=== PATIENT | male | born 1945 ===

== ENCOUNTER 2017-07-17 08:05 | Day surgery (SDC) | payer MEDICARE ==
[2017-07-10 12:26] VITALS: BMI 20.5
[~2017-07-17 08:05] MED LIST: Mineral Oil Light Sterile 25 ml ONE
[2017-07-17] MEDS ORDERED: Propofol 10 mg/ml Inj (20 ML) ONE (10:17)
[2017-07-17] MEDS ORDERED: Succinylcholine 200 mg/10 ml Inj IV ONE (10:23)
--- NOTE | 2017-07-17 10:50 | CARD ---
APPROVED REPORT EKG Measurement Heart [id number] [id number] <Conclusion> Normal sinus rhythm Left ventricular hypertrophy with QRS widening Nonspecific T wave abnormality Prolonged QT Abnormal ECG
[2017-07-17] MEDS ORDERED: Rocuronium 10 mg/ml (5 ml) ONE (11:25)
[2017-07-17] MEDS ORDERED: Sodium Chloride 0.9% 1,000 ML IV SCH (11:45)
[2017-07-17] MEDS ORDERED: HYDROmorphone 0.5 mg/0.5 ml ISec IVP PRN (11:46)
[2017-07-17 12:37] VITALS: BP 130/58; PULSE 97; RESP 20; TEMP 97.2; O2SAT 95
[2017-07-17] MEDS ORDERED: HYDROmorphone 0.5 mg/0.5 ml ISec ONE (12:51)
--- NOTE | 2017-07-17 23:06 | OP ---
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 PROCEDURE PERFORMED: Direct microlaryngoscopy with biopsy. SURGEON: Hao De Souza DO [employer] OFFICER: Dr. Shabazz. TYPE OF ANESTHESIA: General endotracheal. IV FLUID INTAKE: Crystalloid. ESTIMATED BLOOD LOSS: 1 mL FINDINGS: Normal laryngeal examination on microlaryngoscopy. No masses seen to base of tongue. Biopsies taken of right false cord. CONDITION: Stable. PROCEDURE IN DETAIL: The patient is a 72-year-old male with history of base of tongue cancer. He was treated with a combination of chemoradiation. Posttreatment, he underwent a PET scan, which demonstrated increased uptake in the right true and false vocal cords with a SUVmax of 9. There was no demonstration of lesion on flexible laryngoscopy; however, due to the PET scan findings, decision was made to bring the patient to the operating room for further examination and biopsy. All risks and benefits including but not limited to bleeding, infection, changes in voice, both temporary and permanent were discussed with the patient, he understood these risks and signed informed consent. After informed consent was signed, the patient was brought to the operating room and placed in the operating room table in supine position. At this point, general anesthesia was induced and the patient was intubated. At this point, time-out was called confirming proper patient, proper procedure, currently the patient's allergies. At this point, the patient's alveolar ridge was protected with wet Ray-Monet and first palpation was undertaken of the soft and hard palate, tonsils, and base of tongue. No masses or lesions were felt. At this point, a Dedo laryngoscope was inserted into the mouth, again hard and soft palpate were visualized and noted to be normal in appearance. Base of the tongue and vallecula were visualized and noted to be normal in appearance. The lingual surface of the epiglottis was noted to be normal in appearance. At this point, the bilateral pyriform sinuses were evaluated and noted to be normal in appearance without mass or lesions. At this point, the patient was placed into suspension. The laryngeal surface of the epiglottis was noted to be normal in appearance. True and false cords were noted to be normal in appearance and false cords bilaterally were noted to be normal in appearance and soft to palpation. Further documentation was taken of all these subsites. At this point, a biopsy was taken of the right false cord with a cup forceps and sent for permanent pathological analysis and epinephrine-soaked pledgets was then placed over the biopsy site for hemostasis. Hemostasis was obtained and then the laryngoscope was removed from the mouth and care of the patient was turned back over to the Anesthesia Team. The patient tolerated the procedure well with no complications. Hao De Souza DO
--- NOTE | 2017-07-18 07:43 | CARD ---
APPROVED REPORT EKG Measurement Heart [id number] [place] 176P51 [id number] <Conclusion> Normal sinus rhythm Left ventricular hypertrophy with repolarization abnormality Cannot rule out Inferior infarct, age undetermined Prolonged QT Abnormal ECG
== END 2017-07-17 13:11 | disposition home or self-care (01) ==
LOC: SDS 08:05
PROVIDERS: ATTEND Otolaryngology Plastic Surgery within the Head & Neck
DX: C32.9 Malignant neoplasm of larynx, unspecified (principal); I10 Essential (primary) hypertension; Z87.891 Personal history of nicotine dependence
CPT/HCPCS: 31541; 88305; 93005; J0171; J0330; J1100; J1170; J2704; J3010; J7040

== ENCOUNTER 2017-07-17 13:17 | Inpatient (IN) | payer MEDICARE, OTHER ==
[2017-07-17 13:17] VITALS: BMI 20.5
[2017-07-17] MEDS ORDERED: Nitroglycerin 2% Ointment Foilpak UD TOP STA (13:58)
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
--- NOTE | 2017-07-17 15:12 | RAD ---
HISTORY: cp COMPARISON: 12/02/2014 FINDINGS: LUNGS: There is vascular and interstitial congestion. There is a right internal jugular Port-A-Cath PLEURA: No significant pleural effusion identified, no pneumothorax apparent. CARDIOVASCULAR: Normal. OSSEOUS STRUCTURES: No significant abnormalities. VISUALIZED UPPER ABDOMEN: Normal. OTHER FINDINGS: None. IMPRESSION: Vascular and interstitial congestion
[2017-07-17 15:37] LABS: EOS % 0.2 % (1.5-5.0); GRAN # 5.31 (1.4-6.5); GRAN % 86.6 % (50.0-68.0); HEMATOCRIT 36.6 % (42.0-52.0); LYMPH # 0.8 (1.2-3.4); LYMPH % 12.9 % (22.0-35.0); MEAN CELL VOLUME 89.1 fl (80.0-105.0); MEAN CORPUSCULAR HEMOGLOBIN 30.4 pg (25.0-35.0); MEAN CORPUSCULAR HGB CONC 34.2 g/dl (31.0-37.0); MEAN PLATELET VOLUME 9.1 fl (7.0-11.0); MONO % 0.3 % (1.0-6.0); RED CELL DISTRIBUTION WIDTH 14.3 % (11.5-14.5); WHITE BLOOD COUNT 6.1 10^3/ul (4.5-11.0)
[2017-07-17 15:40] LABS: ALB/GLOB RATIO 1.1 (1.1-1.8); ALKALINE PHOSPHATASE 76 U/L (38-126); ALT/SGPT 19 U/L (7-56); AST/SGOT 27 U/L (17-59); BILIRUBIN,TOTAL 0.5 mg/dL (0.2-1.3); BLOOD UREA NITROGEN 17 mg/dL (7-21); CALCIUM 9.6 mg/dL (8.4-10.5); CARBON DIOXIDE 22 mmol/L (21-33); CHLORIDE 101 mmol/L (98-107); GFR AFRICAN-AMERICAN > 60; GLUCOSE,RANDOM 130 mg/dL (70-110); MAGNESIUM 1.7 mg/dL (1.7-2.2); POTASSIUM 3.6 mmol/L (3.6-5.0); SODIUM 138 mmol/L (132-148); TOTAL PROTEIN 8.3 g/dL (5.8-8.3)
[2017-07-17 15:46] LABS: INR 1.07 (0.93-1.08)
[2017-07-17 15:47] LABS: PARTIAL THROMBOPLASTIN TIME 27.9 Seconds (25.1-36.5)
[2017-07-17 15:52] LABS: TROPONIN I 0.11 ng/mL
[2017-07-17 15:58] LABS: URINE BILIRUBIN NEGATIVE (NEGATIVE); URINE BLOOD NEGATIVE (NEGATIVE); URINE GLUCOSE (UA) NEGATIVE (NEGATIVE); URINE KETONE TRACE mg/dL (NEGATIVE); URINE LEUKOCYTE ESTERASE NEGATIVE Leu/uL (NEGATIVE); URINE PROTEIN 100 mg/dL (<30 mg/dL); URINE UROBILINOGEN 0.2 E.U./dL (<1 E.U./dL)
[2017-07-17 16:03] LABS: URINE APPEARANCE CLEAR (CLEAR); URINE COLOR YELLOW (YELLOW)
[2017-07-17 16:15] LABS: URINE RBC 0 - 2 /hpf (0-2)
[2017-07-17 16:16] LABS: URINE BACTERIA FEW (NEG); URINE WBC 0 - 2 /hpf (0-6)
[2017-07-17] MEDS: Enoxaparin 60 mg Syringe SC SCH (17:15)
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
[2017-07-17] MEDS: Nitroglycerin 2% Ointment Foilpak UD TOP SCH (19:39)
[2017-07-17] MEDS ORDERED: Albuterol-Ipratrop 3 mg / 0.5 (3 ml) UD IH STA (23:03)
[2017-07-17 23:23] LABS: ARTERIAL BLOOD GAS HCO3 18.2 mmol/L (21-28); ARTERIAL BLOOD GAS PH 7.42 (7.35-7.45)
[2017-07-18] MEDS: Enoxaparin 60 mg Syringe SC SCH (06:24)
[2017-07-18] MEDS: Pantoprazole 40 mg EC Tab PO SCH (06:24)
--- NOTE | 2017-07-18 06:35 | CP.PCM.PN ---
Subjective - Date & Time of Evaluation Date of Evaluation: 07/17/17 Time of Evaluation: 23:25 - Subjective Subjective: pt is sob with ashen cuevas color , no cp , pt is admitted with NSTEMI has hx of throat cancer. Objective - Vital Signs/Intake and Output Vital Signs (last 24 hours): Temp Pulse Resp BP Pulse Ox 98.6 F 96 H 18 110/64 100 07/18/17 00:01 07/18/17 02:00 07/18/17 00:01 07/18/17 00:01 07/18/17 00:01 Intake and Output: 07/17/17 07/18/17 18:59 06:59 Intake Total 300 Output Total 875 Balance -575 - Medications Medications: Current Medications Aspirin (Aspirin Chewable) 81 mg PO DAILY [facility] Atorvastatin Calcium (Lipitor) 20 mg PO HS [facility] Last Admin: 07/17/17 23:30 Dose: 20 mg Enoxaparin Sodium (Lovenox) 50 mg SC Q12H [facility] PRN Reason: Protocol Last Admin: 07/17/17 17:15 Dose: 50 mg Metoprolol Succinate (Toprol Xl) 25 mg PO BRK [facility] Nitroglycerin (Nitro-Bid 2% Oint) 0.5 ea TOP STAT [facility] Last Admin: 07/17/17 19:39 Dose: Not Given Pantoprazole Sodium (Protonix Ec Tab) 40 mg PO 0600 [facility] Tamsulosin HCl (Flomax) 0.4 mg PO DAILY [facility] Tramadol HCl (Ultram) 50 mg PO Q6H PRN PRN Reason: Pain, moderate (4-7) - Labs Labs: PT 11.7 SECONDS (9.4-12.5) 07/17/17 15:15 INR 1.07 (0.93-1.08) 07/17/17 15:15 APTT 27.9 Seconds (25.1-36.5) 07/17/17 15:15 - Constitutional Appears: In Acute Distress - Head Exam Head Exam: NORMOCEPHALIC - Eye Exam Eye Exam: PERRL - ENT Exam ENT Exam: Mucous Membranes Moist - Neck Exam Neck Exam: Full ROM - Respiratory Exam Respiratory Exam: Decreased Breath Sounds - Cardiovascular Exam Cardiovascular Exam: RRR, +S1, +S2 - Rectal Exam Rectal Exam: Deferred - Extremities Exam Extremities Exam: Full ROM - Neurological Exam Neurological Exam: Alert, Awake, Oriented x3 - Psychiatric Exam Psychiatric exam: Anxious - Skin Skin Exam: Dry Assessment and Plan - Assessment and Plan (Free Text) Assessment: sob .chf. nstemi hx of throat cancer. Plan: duo nebs , ekg stat. lasix 40 mg x1. chest xray . abg stat.
[2017-07-18 06:55] LABS: GRAN # 7.2 (1.4-6.5); GRAN % 78.3 % (50.0-68.0); HEMATOCRIT 34.2 % (42.0-52.0); LYMPH # 1.5 (1.2-3.4); LYMPH % 15.9 % (22.0-35.0); MEAN CELL VOLUME 87.9 fl (80.0-105.0); MEAN CORPUSCULAR HEMOGLOBIN 30.1 pg (25.0-35.0); MEAN CORPUSCULAR HGB CONC 34.2 g/dl (31.0-37.0); MONO # 0.5 (0.1-0.6); MONO % 5.8 % (1.0-6.0); RED CELL DISTRIBUTION WIDTH 14.2 % (11.5-14.5); WHITE BLOOD COUNT 9.2 10^3/ul (4.5-11.0)
--- NOTE | 2017-07-18 07:44 | CARD ---
APPROVED REPORT EKG Measurement Heart [id number] [place] 140P73 [id number] <Conclusion> Sinus rhythm with premature supraventricular complexes Left ventricular hypertrophy with QRS widening Possible Inferior infarct, age undetermined Marked ST abnormality, possible lateral subendocardial injury LVH.
[2017-07-18] MEDS: Metoprolol Succinate 25 mg XL Tab PO SCH (08:08)
[2017-07-18 08:27] LABS: ALKALINE PHOSPHATASE 61 U/L (38-126); ALT/SGPT 25 U/L (7-56); AST/SGOT 98 U/L (17-59); BILIRUBIN,TOTAL 0.7 mg/dL (0.2-1.3); BLOOD UREA NITROGEN 23 mg/dL (7-21); CALCIUM 9.2 mg/dL (8.4-10.5); CARBON DIOXIDE 21 mmol/L (21-33); CHLORIDE 101 mmol/L (98-107); GFR AFRICAN-AMERICAN > 60; GLUCOSE,RANDOM 135 mg/dL (70-110); MAGNESIUM 1.6 mg/dL (1.7-2.2); PHOSPHOROUS 4.5 mg/dL (2.5-4.5); POTASSIUM 4.1 mmol/L (3.6-5.0); SODIUM 136 mmol/L (132-148); TOTAL PROTEIN 7.6 g/dL (5.8-8.3)
[2017-07-18] MEDS ORDERED: Magnesium Sulfate 2 GM in Sodium Chloride 0.9% 100 ML IVPB ONE (08:59)
--- NOTE | 2017-07-18 09:39 | CARD ---
APPROVED REPORT EKG Measurement Heart [id number] [place] 176P60 [id number] <Conclusion> Sinus rhythm with premature atrial complexes Left ventricular hypertrophy with QRS widening and repolarization abnormality Abnormal ECG
--- NOTE | 2017-07-18 09:41 | RAD ---
HISTORY: Respiratory Distress COMPARISON: Earlier same day FINDINGS: LUNGS: There is an increasing interstitial infiltrate in the left lung. PLEURA: No significant pleural effusion identified, no pneumothorax apparent. CARDIOVASCULAR: Normal. OSSEOUS STRUCTURES: No significant abnormalities. VISUALIZED UPPER ABDOMEN: Normal. OTHER FINDINGS: None. IMPRESSION: Increasing left-sided interstitial infiltrate
--- NOTE | 2017-07-18 10:58 | CP.PCM.PN ---
Subjective - Date & Time of Evaluation Date of Evaluation: 07/18/17 Time of Evaluation: 09:10 - Subjective Subjective: Medicine progress note: Pt seen and examined at bedside. No acute events. Pt c/o of some sob and desat to 80s and was subsequently placed on non rebreather. Denies any chest pain. No other complaints. 12 point ROS performed and neg other than stated above. Objective - Vital Signs/Intake and Output Vital Signs (last 24 hours): Temp Pulse Resp BP Pulse Ox 98.4 F 66 16 109/49 L 100 07/18/17 06:00 07/18/17 08:08 07/18/17 06:00 07/18/17 08:08 07/18/17 06:00 Intake and Output: 07/18/17 07/18/17 06:59 18:59 Intake Total 300 Output Total 875 Balance -575 - Medications Medications: Current Medications Aspirin (Aspirin Chewable) 81 mg PO DAILY [facility] Atorvastatin Calcium (Lipitor) 20 mg PO HS [facility] Last Admin: 07/17/17 23:30 Dose: 20 mg Metoprolol Succinate (Toprol Xl) 25 mg PO BRK [facility] Last Admin: 07/18/17 08:08 Dose: 25 mg Nitroglycerin (Nitro-Bid 2% Oint) 0.5 ea TOP STAT [facility] Last Admin: 07/17/17 19:39 Dose: Not Given Pantoprazole Sodium (Protonix Ec Tab) 40 mg PO 0600 [facility] Last Admin: 07/18/17 06:24 Dose: 40 mg Tamsulosin HCl (Flomax) 0.4 mg PO DAILY [facility] Tramadol HCl (Ultram) 50 mg PO Q6H PRN PRN Reason: Pain, moderate (4-7) - Labs Labs: 07/18/17 06:30 07/18/17 06:30 PT 11.7 SECONDS (9.4-12.5) 07/17/17 15:15 INR 1.07 (0.93-1.08) 07/17/17 15:15 APTT 27.9 Seconds (25.1-36.5) 07/17/17 15:15 - Constitutional Appears: No Acute Distress - Head Exam Head Exam: ATRAUMATIC, NORMOCEPHALIC - Eye Exam Eye Exam: EOMI, PERRL - ENT Exam ENT Exam: Mucous Membranes Moist - Respiratory Exam Respiratory Exam: Clear to Ausculation Bilateral. absent: Rales, Wheezes - Cardiovascular Exam Cardiovascular Exam: REGULAR RHYTHM, RRR, +S1, +S2 - GI/Abdominal Exam GI & Abdominal Exam: Soft. absent: Tenderness - Extremities Exam Extremities Exam: absent: Calf Tenderness, Pedal Edema - Neurological Exam Neurological Exam: Alert, Awake, Oriented x3 - Psychiatric Exam Psychiatric exam: Normal Affect, Normal Mood. absent: Anxious Assessment and Plan - Assessment and Plan (Free Text) Assessment: 72 yo M with PMH of PAD, HTN, HLD, laryngeal CA s/p chemo and radiation presents s/p laryngoscopy and biopsy under general anesthesia, complaining of chest tightness. Noted to have EKG changes concerning for ischemia and elevated troponin. Plan for cardiac cath today. Plan 1. Chest pain, 2/2 ACS - + trops .11 --> .64 --> 8.74 --> 17 - Consulted cardiology for recs Dr. Warner - plan for cardiac cath today - Cont Lovenox 50mg Q12H therapeutic - Continue ASA, BB, Statin - Admit to telemetry - Ordered echo will f/u 2. h/o HTN - BP currently stable - Hold home CCB, monitor and add on as needed 3. HLD - Cont home Lipitor 4. Hypomag - repleted with MgSO4 2gm stat - Cont to monitor 5. Laryngeal ca s/p chemo and radiation - Stable at this time - Will consider getting heme/onc consult 6. GI/DVT Ppx - Lovenox and Protonix Patient discussed, and reviewed with attending
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
[2017-07-18] MEDS ORDERED: Lidocaine 2% Inj (20ml) ONE (14:05)
[2017-07-18] MEDS ORDERED: Phenylephrine 10 mg/ml Inj ONE (14:06)
[2017-07-18] MEDS ORDERED: Iodixanol 320 MG/ML 100 ML BOTTLE IV ONE (14:07)
[2017-07-18] MEDS ORDERED: Midazolam 2 MG/2 ML VIAL ONE (14:07)
[2017-07-18] MEDS ORDERED: Iohexol 350mgl/ml 50 ML ONE (14:07)
[2017-07-18] MEDS ORDERED: Iodixanol 320 MG/ML 200 ML BOTTLE IV ONE (14:08)
[2017-07-18] MEDS ORDERED: Nitroglycerin 50mg in D5W 50 MG/250 ML BOTTLE IV ONE (14:10)
[2017-07-18] MEDS ORDERED: Bacitracin 500 Units/gm Oint Foilpak UD TOP ONE (15:55)
[2017-07-18] MEDS ORDERED: Sodium Chloride 0.9% 1,000 ML IV SCH (16:00)
--- NOTE | 2017-07-18 17:56 | CARD ---
APPROVED REPORT Procedure(s) performed: Left Heart Catheterization HISTORY The patient is a 72 year-old male with a history of : peripheral vascular disease, tobacco history() : The patient is a current smoker , hypertension , dyslipidemia , Hx of Head and Neck cancer and second possible primary in lung, who had a F/U Bx of thraot followed by development of chest pain and significant ST T changes and troponin keep on increasing to a maximum 8.4. INDICATION The indication(s) include : non-STEMI . CASE TECHNIQUE The patient was brought urgently to the Cardiac Catheterization Laboratory in a fasting state and was prepped and draped in a sterile manner. The left wrist was infiltrated with 2% Lidocaine subcutaneous anesthesia. A 6FR GLIDESHEATH ACCESS KIT sheath was inserted into the left radial artery without difficulty. Coronary angiography was performed using coronary diagnostic catheters. The left coronary system was accessed and visualized with a Diagnostic ,5 Fr JL 3.5 catheter. The right coronary system was accessed and visualized with a Diagnostic ,5 Fr JR 4 catheter. The left ventricle was accessed and visualized with a 5 Fr Pigtail 145 (Angled) catheter. Left ventricular/Aortic Valve gradient assessed on pullback. Closure device was deployed with a Fr TR Band (Regular) without any complications. The patient tolerated the procedure well and there were no complications associated with the procedure. Vessel Analysis The patient's coronary anatomy is right dominant. The left main coronary artery is a large size vessel with diffuse calcification noted throughout this vessel and without significant stenosis. Heavily calcified left main The left main bifurcates to the left anterior descending and circumflex. The left anterior descending artery is a large size vessel with diffuse calcification noted throughout this vessel and with significant stenosis. There is a 60-70% stenosis in the mid segment. The first diagonal branch is a small size vessel with diffuse calcification noted throughout this vessel and without significant stenosis. The second diagonal branch is a medium size vessel with diffuse calcification noted throughout this vessel and without significant stenosis. The circumflex artery is a medium size vessel with diffuse calcification noted throughout this vessel and with significant stenosis. There is a 99% stenosis in the proximal segment. with bridge collateral The first obtuse marginal branch is a small size vessel with diffuse calcification noted throughout this vessel and without significant stenosis. The right coronary artery is a large size vessel with diffuse calcification noted throughout this vessel and with significant stenosis. Severly catcified RCA There is a 100% stenosis in the proximal segment. With collatral from proximal to Distal RCA( Kugel's artery) The right posterior descending artery is a medium size vessel with diffuse calcification noted throughout this vessel and without significant stenosis. Left Ventricle The left ventricle is borderline enlarged in size with mild to moderately decreased contractility. Ischemic cardiomyopathy. The left ventricular ejection fraction is estimated to be 35-40%. The left ventricular end diastolic pressure is 20 mmHg. postero-basal hypokinesis There was no gradient across the aortic valve upon pullback. Conclusion Severly Calcified Coronaries .Triple Vessel disease involving left main. Left main distal 60-70% stenosis in worst view Mid LAD 60-70 stenosis. Circuflex proximal 99% with bridge collaterals and very angulated take off, not suitable for PCI. RCA is CTOheavily calcified with Brighe bollaterals from Proximal to distal RCA (Kugel's artery). Mild to moderately decreased LV FX-EF-35-40% with postero-basl HK. Recommendations Aggressive Medical Therapy Continue ASA and plavix for four weeks followed by ASA 81 mg po daily. Continue, Dig, Diuretics, KUSH, Coreg,Nitrates, and spironolactone. Not a candidate For OHS too frail Coronary Anatomy not Suitable for PCI........ Aggressive medial treatments as above. CC; drs. Bennett/ Etelvina.
[2017-07-18] MEDS: Nitroglycerin 2% Ointment Foilpak UD TOP SCH (18:50)
--- NOTE | 2017-07-18 18:50 | CARD ---
APPROVED REPORT EXAM: Two-dimensional and M-mode echocardiogram with Doppler and color Doppler. INDICATION Chest Pain Non STEMI 2D DIMENSIONS Left Atrium (2D)3.9 (1.6-4.0cm)IVSd1.0 (0.7-1.1cm) LVDd5.3 (3.9-5.9cm)PWd1.0 (0.7-1.1cm) LVDs4.8 (2.5-4.0cm)LVEF (%)15.0 (>50%) M-Mode DIMENSIONS Aortic Root3.00 (2.2-3.7cm)Aortic Cusp Exc.1.80 (1.5-2.0cm) Aortic Valve AoV Peak Wtpnzdka253.0cm/Sylvia Peak GR.9mmHg Mitral Valve MV E Lnzdrdcf632.0cm/sMV A Fsaxevsl81.0cm/sE/A ratio1.7 TDI E/Lateral E'0.0E/Medial E'0.0 Tricuspid Valve TR Peak Bekeuolj267rl/sTR Peak Gr.54mmHg LEFT VENTRICLE The left ventricle is normal size. There is normal left ventricular wall thickness. The systolic function is moderately impaired.EF-25% There is moderate to severe hypokinesis in the mid-inferolateral wall. There is mild to moderate hypokinesis in the apical anterior wall. Transmitral Doppler flow pattern is Grade II-pseudonormal filling dynamics. No left ventricle thrombus noted on this study. There is no ventricular septal defect visualized. There is no left ventricular aneurysm. There is no mass noted in the left ventricle. RIGHT VENTRICLE The right ventricle is normal size. There is normal right ventricular wall thickness. The right ventricular systolic function is normal. ATRIA The left atrium size is normal. The right atrium size is normal. The interatrial septum is intact with no evidence for an atrial septal defect. AORTIC VALVE The aortic valve is thickened but opens well. There is moderate aortic regurgitation. There is no aortic valvular stenosis. There is no aortic valvular vegetation. MITRAL VALVE The mitral valve is thickened but opens well. Mitral regurgitation is mild to moderate. There is no mitral valve stenosis. There is no evidence of mitral valve prolapse. TRICUSPID VALVE The tricuspid valve leaflets are thickened , but open well. There is moderate tricuspid regurgitation.RVS_54 mmof Hg. There is no tricuspid valve stenosis. There is no tricuspid valve prolapse or vegetation. PULMONIC VALVE The pulmonic valve is mildly thickened. There is mild pulmonic valvular regurgitation. There is no pulmonic valvular stenosis. GREAT VESSELS The aortic root is normal in size. The ascending aorta is normal in size. The pulmonary artery is normal. The IVC is normal in size and collapses >50% with inspiration. PERICARDIAL EFFUSION There is no pleural effusion. There is no pericardial effusion. <Conclusion> The left ventricle is normal size. There is normal left ventricular wall thickness. The systolic function is moderately impaired.EF-25% There is moderate aortic regurgitation. Mitral regurgitation is mild to moderate. There is moderate tricuspid regurgitation.RVS_54 mmof Hg. There is mild pulmonic valvular regurgitation. The IVC is normal in size and collapses >50% with inspiration. There is no pericardial effusion.
[2017-07-18 19:57] VITALS: RESP 20
[2017-07-19] MEDS: Pantoprazole 40 mg EC Tab PO SCH (05:07)
[2017-07-19 05:13] VITALS: O2SAT 98
[2017-07-19 06:06] LABS: BASO # 0.01 K/mm3 (0.0-2.0); BASO % 0.1 % (0.0-3.0); EOS # 0.1 (0.0-0.7); EOS % 0.9 % (1.5-5.0); GRAN # 5.4 (1.4-6.5); GRAN % 68.9 % (50.0-68.0); HEMATOCRIT 34.2 % (42.0-52.0); LYMPH # 1.7 (1.2-3.4); LYMPH % 22.1 % (22.0-35.0); MEAN CELL VOLUME 88.6 fl (80.0-105.0); MEAN CORPUSCULAR HEMOGLOBIN 30.1 pg (25.0-35.0); MEAN CORPUSCULAR HGB CONC 33.9 g/dl (31.0-37.0); MEAN PLATELET VOLUME 8.7 fl (7.0-11.0); MONO # 0.6 (0.1-0.6); RED CELL DISTRIBUTION WIDTH 14.3 % (11.5-14.5); WHITE BLOOD COUNT 7.8 10^3/ul (4.5-11.0)
[2017-07-19] MEDS: Metoprolol Succinate 25 mg XL Tab PO SCH (07:38)
[2017-07-19 08:15] LABS: ALKALINE PHOSPHATASE 57 U/L (38-126); ALT/SGPT 25 U/L (7-56); AST/SGOT 89 U/L (17-59); BILIRUBIN,TOTAL 0.7 mg/dL (0.2-1.3); BLOOD UREA NITROGEN 27 mg/dL (7-21); CALCIUM 9.1 mg/dL (8.4-10.5); CARBON DIOXIDE 27 mmol/L (21-33); CHLORIDE 102 mmol/L (98-107); GFR AFRICAN-AMERICAN > 60; GLUCOSE,RANDOM 113 mg/dL (70-110); MAGNESIUM 1.8 mg/dL (1.7-2.2); PHOSPHOROUS 3.8 mg/dL (2.5-4.5); POTASSIUM 3.3 mmol/L (3.6-5.0); SODIUM 138 mmol/L (132-148); TOTAL PROTEIN 7.6 g/dL (5.8-8.3)
[2017-07-19] MEDS ORDERED: Potassium Chloride 40 mEq/30 ml LIQ UD PO STA (09:00)
--- NOTE | 2017-07-19 09:30 | CP.PCM.PN ---
Subjective - Date & Time of Evaluation Date of Evaluation: 07/17/17 Time of Evaluation: 13:00 - Subjective Subjective: 72 y/o gentleman PMH HTN, PVD, smoker, laryngeal CA came to OR for laryngoscopy for biopsy. Pt took his blood pressure medications morning of surgery, denies h /o CP or SOB, METS >4, no CP, no SOB. Prior to surgery pt had EKG completed, no acute ST changes and is optimized for surgery as n usual state of health. Case was uneventful VSS thoughout, and patient extubated after procedure. Patient did well in PACU, VS within normal limits no CP or other complaints at this time, transferred to [facility]. Prior to discharge patient noted mild chest discomfort. Ordered ECG at this point which showed lateral leads with ST changes. Patient immediately transferred to ER for rule out VT. Objective - Vital Signs/Intake and Output Vital Signs (last 24 hours): Temp Pulse Resp BP Pulse Ox 98.9 F 80 20 115/58 L 98 07/19/17 05:12 07/19/17 05:12 07/19/17 05:12 07/19/17 05:12 07/19/17 05:12 Intake and Output: 07/19/17 07/19/17 06:59 18:59 Intake Total 360 Output Total 1700 Balance -1340 - Medications Medications: Current Medications Aspirin (Aspirin Chewable) 81 mg PO DAILY [facility] Last Admin: 07/18/17 11:50 Dose: 81 mg Atorvastatin Calcium (Lipitor) 20 mg PO HS [facility] Last Admin: 07/18/17 21:12 Dose: 20 mg Clopidogrel Bisulfate (Plavix) 75 mg PO DAILY [facility] Digoxin (Lanoxin) 0.125 mg PO 1400 [facility] Furosemide (Lasix) 40 mg PO DAILY [facility] Isosorbide Mononitrate (Imdur Er) 30 mg PO DAILY [facility] Lisinopril (Zestril) 2.5 mg PO DAILY [facility] Metoprolol Succinate (Toprol Xl) 25 mg PO BRK [facility] Last Admin: 07/19/17 07:38 Dose: 25 mg Nitroglycerin (Nitro-Bid 2% Oint) 0.5 ea TOP STAT [facility] Last Admin: 07/18/17 18:50 Dose: Not Given Pantoprazole Sodium (Protonix Ec Tab) 40 mg PO 0600 [facility] Last Admin: 07/19/17 05:07 Dose: 40 mg Spironolactone (Aldactone) 25 mg PO DAILY [facility] Tamsulosin HCl (Flomax) 0.4 mg PO DAILY [facility] Last Admin: 07/18/17 11:05 Dose: Not Given Tramadol HCl (Ultram) 50 mg PO Q6H PRN PRN Reason: Pain, moderate (4-7) - Labs Labs: 07/19/17 05:58 07/19/17 05:58 PT 11.7 SECONDS (9.4-12.5) 07/17/17 15:15 INR 1.07 (0.93-1.08) 07/17/17 15:15 APTT 27.9 Seconds (25.1-36.5) 07/17/17 15:15 Assessment and Plan - Assessment and Plan (Free Text) Assessment: Plan has completed cardiac catheterization found to have extensive CAD and will receive medical management. Currently is asymptomatic and is being prepared for discharge home. Will continue to follow.
--- NOTE | 2017-07-19 09:53 | CARD ---
APPROVED REPORT EKG Measurement Heart [id number] SD [id number] [id number] <Conclusion> Normal sinus rhythm Minimal voltage criteria for LVH, may be normal variant Possible Inferior infarct, age undetermined Prolonged QT Abnormal ECG
[2017-07-19 12:20] VITALS: BP 104/68; PULSE 84; TEMP 97.9
[2017-07-19 13:18] VITALS: PULSE 80
[2017-07-19] MEDS ORDERED: Digoxin 125 mcg (0.125 mg) Tab PO SCH (14:00)
--- NOTE | 2017-07-19 15:39 | CP.PCM.DIS ---
Provider - Provider Date of Admission: 07/17/17 16:28 Attending physician: David Bennett MD Primary care physician: Prudencio Franco MD Consults: Cardiology Time Spent in preparation of Discharge (in minutes): 40 Hospital Course - Lab Results Lab Results: Most Recent Lab Values WBC 7.8 10^3/ul (4.5-11.0) 07/19/17 05:58 RBC 3.86 10^6/uL (3.5-6.1) 07/19/17 05:58 Hgb 11.6 g/dL (14.0-18.0) L 07/19/17 05:58 Hct 34.2 % (42.0-52.0) L 07/19/17 05:58 MCV 88.6 fl (80.0-105.0) 07/19/17 05:58 MCH 30.1 pg (25.0-35.0) 07/19/17 05:58 MCHC 33.9 g/dl (31.0-37.0) 07/19/17 05:58 RDW 14.3 % (11.5-14.5) 07/19/17 05:58 Plt Count 177 10^3/uL (120.0-450.0) 07/19/17 05:58 MPV 8.7 fl (7.0-11.0) 07/19/17 05:58 Gran % 68.9 % (50.0-68.0) H 07/19/17 05:58 Lymph % (Auto) 22.1 % (22.0-35.0) 07/19/17 05:58 [place] % (Auto) 8.0 % (1.0-6.0) H 07/19/17 05:58 Eos % (Auto) 0.9 % (1.5-5.0) L 07/19/17 05:58 Baso % (Auto) 0.1 % (0.0-3.0) 07/19/17 05:58 Gran # 5.40 (1.4-6.5) 07/19/17 05:58 Lymph # 1.7 (1.2-3.4) 07/19/17 05:58 [place] # 0.6 (0.1-0.6) 07/19/17 05:58 Eos # 0.1 (0.0-0.7) 07/19/17 05:58 Baso # 0.01 K/mm3 (0.0-2.0) 07/19/17 05:58 PT 11.7 SECONDS (9.4-12.5) 07/17/17 15:15 INR 1.07 (0.93-1.08) 07/17/17 15:15 APTT 27.9 Seconds (25.1-36.5) 07/17/17 15:15 pCO2 28 mm/Hg (35-45) L 07/17/17 23:20 pO2 119.0 mm/Hg (80-100) H 07/17/17 23:20 HCO3 18.2 mmol/L (21-28) L 07/17/17 23:20 ABG pH 7.42 (7.35-7.45) 07/17/17 23:20 ABG Total CO2 19.1 mmol.L (22-28) L 07/17/17 23:20 ABG O2 Saturation 98.6 % (95-98) H 07/17/17 23:20 ABG Base Excess -4.9 mmol/L (-2.0-3.0) L 07/17/17 23:20 ABG Potassium 4.0 mmol/L (3.6-5.2) 07/17/17 23:20 Sodium 133.0 mmol/L (132-148) 07/17/17 23:20 Chloride 103.0 mmol/L (98-107) 07/17/17 23:20 Glucose 166 mg/dl (75-110) H 07/17/17 23:20 Lactate 1.6 mmol/L (0.7-2.1) 07/17/17 23:20 FiO2 100.0 % 07/17/17 23:20 Sodium 138 mmol/L (132-148) 07/19/17 05:58 Potassium 3.3 mmol/L (3.6-5.0) L 07/19/17 05:58 Chloride 102 mmol/L (98-107) 07/19/17 05:58 Carbon Dioxide 27 mmol/L (21-33) 07/19/17 05:58 Anion Gap 12 (10-20) 07/19/17 05:58 BUN 27 mg/dL (7-21) H 07/19/17 05:58 Creatinine 1.1 mg/dl (0.8-1.5) 07/19/17 05:58 Est GFR ( Amer) > 60 07/19/17 05:58 Est GFR (Non-Af Amer) > 60 07/19/17 05:58 Random Glucose 113 mg/dL (70-110) H 07/19/17 05:58 Hemoglobin A1c 5.5 % (4.2-6.5) 07/18/17 06:30 Calcium 9.1 mg/dL (8.4-10.5) 07/19/17 05:58 Phosphorus 3.8 mg/dL (2.5-4.5) 07/19/17 05:58 Magnesium 1.8 mg/dL (1.7-2.2) 07/19/17 05:58 Total Bilirubin 0.7 mg/dL (0.2-1.3) 07/19/17 05:58 AST 89 U/L (17-59) H 07/19/17 05:58 ALT 25 U/L (7-56) 07/19/17 05:58 Alkaline Phosphatase 57 U/L (38-126) 07/19/17 05:58 Lactate Dehydrogenase 946 U/L (333-699) H 07/18/17 06:30 Total Creatine Kinase 835 U/L (35-230) H 07/18/17 06:30 CK-MB (CK-2) 63.0 ng/mL (0.0-3.6) H 07/18/17 06:30 CK-MB (CK-2) % 7.5 % (2.5-3.0) H 07/18/17 06:30 Troponin I 17.00 ng/mL H* D 07/18/17 06:30 NT-Pro-B Natriuret Pep 3140 pg/mL (0-450) H 07/17/17 15:15 Total Protein 7.6 g/dL (5.8-8.3) 07/19/17 05:58 Albumin 3.9 g/dL (3.0-4.8) 07/19/17 05:58 Globulin 3.7 gm/dL 07/19/17 05:58 Albumin/Globulin Ratio 1.0 (1.1-1.8) L 07/19/17 05:58 Triglycerides 85 mg/dL (35-160) 07/18/17 06:30 Cholesterol 159 mg/dL (130-200) 07/18/17 06:30 LDL Cholesterol Direct 85 mg/dL (0-129) 07/18/17 06:30 HDL Cholesterol 45 mg/dL (29-60) 07/18/17 06:30 TSH 3rd Generation 1.06 mIU/mL (0.46-4.68) 07/18/17 06:30 Arterial Blood Potassium 4.0 mmol/L (3.6-5.2) 07/17/17 23:20 Urine Color Yellow (YELLOW) 07/17/17 15:51 Urine Appearance Clear (CLEAR) 07/17/17 15:51 Urine pH 6.0 (4.7-8.0) 07/17/17 15:51 Ur Specific [place] 1.025 (1.005-1.035) 07/17/17 15:51 Urine Protein 100 mg/dL (<30 mg/dL) H 07/17/17 15:51 Urine Glucose (UA) Negative mg/dL (NEGATIVE) 07/17/17 15:51 Urine Ketones Trace mg/dL (NEGATIVE) H 07/17/17 15:51 Urine Blood Negative (NEGATIVE) 07/17/17 15:51 Urine Nitrate Negative (NEGATIVE) 07/17/17 15:51 Urine Bilirubin Negative (NEGATIVE) 07/17/17 15:51 Urine Urobilinogen 0.2 E.U./dL (<1 E.U./dL) 07/17/17 15:51 Ur Leukocyte Esterase Negative Lita/uL (NEGATIVE) 07/17/17 15:51 Urine RBC 0 - 2 /hpf (0-2) 07/17/17 15:51 Urine WBC 0 - 2 /hpf (0-6) 07/17/17 15:51 Ur Epithelial Cells None /hpf (0-5) 07/17/17 15:51 Urine Bacteria Few (NEG) 07/17/17 15:51 Hyaline Casts 0 - 2 /hpf 07/17/17 15:51 - Hospital Course Hospital Course: 72 yo M with PMH of PAD, HTN, HLD, laryngeal CA s/p chemo and radiation presents s/p laryngoscopy and biopsy under general anesthesia, complaining of chest tightness. In the ED basic labwork was done. EKG showed sinus with PAC and LVH, no ST changes. Troponin x 1 was 0.11. Cardiology was consulted. Pt was admitted to tele for close monitoring. Overnight patient complained of some sob and chest pain and desat to 80's requiring a non rebreather mask. Following troponin was 0.64--> 8.74 --> 17. Echo showed 25% EF with moderate MR and AR. Cardiology recommended patient for cardiac cath - which showed triple vessel dx , but patient is too frail therefore CABG was not an option - and was recommended conservative aggressive medical management with ACEI / ARB, BB, ASA , Plavix (1 month) Aldactone, Digoxin, Notrate. Today the patient feels much better. denies any saldana, dizziness, sob, cp, palpitations, abd pain, n/v/d. I had an extensive discussion regarding being compliant with all his medications. Patient verbalized understanding of his medical condition. Discharge Exam - Head Exam Head Exam: ATRAUMATIC, NORMOCEPHALIC - Eye Exam Eye Exam: EOMI, PERRL - Respiratory Exam Respiratory Exam: Clear to PA & Lateral. absent: Decreased Breath Sounds, Rales , Wheezes - Cardiovascular Exam Cardiovascular Exam: REGULAR RHYTHM, +S1, +S2 - GI/Abdominal Exam GI & Abdominal Exam: Normal Bowel Sounds. absent: Soft - Neurological Exam Neurological exam: Alert - Psychiatric Exam Psychiatric exam: Normal Affect, Normal Mood - Skin Skin Exam: Dry, Intact, Warm Discharge Plan - Discharge Medications Prescriptions: Aspirin [Aspirin Chewable] 81 mg PO DAILY #30 chew Clopidogrel [Plavix] 75 mg PO DAILY #30 tab Digoxin [Lanoxin] 0.125 mg PO 1400 #30 tab Furosemide [Lasix] 40 mg PO DAILY #30 tab Isosorbide Mononitrate ER [Imdur ER] 30 mg PO DAILY #30 tab Lisinopril [Zestril] 2.5 mg PO DAILY #30 tab Metoprolol Succinate [Toprol XL] 25 mg PO BRK #30 tab Spironolactone [Aldactone] 25 mg PO DAILY #30 tab - Follow Up Plan Condition: FAIR Disposition: HOME/ ROUTINE Instructions: Myocardial Infarction (DC), Acute Coronary Syndrome (DC) Additional Instructions: Follow up with your Primary Medical Doctor in 3-5 days. 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 If your symptoms recur come back to the Emergency Department. Take your medications as prescribed. Take Aspirin and Plavix for 30 days. Then only Aspirin daily for lifetime. Referrals: Prudencio Franco MD [Primary Care Provider] -
[2017-07-19] MEDS: Nitroglycerin 2% Ointment Foilpak UD TOP SCH (17:16)
--- NOTE | 2017-07-20 05:21 | CON ---
DATE: 07/19/2017 CONSULT SERVICE: Cardiology. CONSULTING PHYSICIAN: Dr. Alyssa Warner. REASON FOR CONSULTATION AND FOLLOWUP: Acute coronary artery syndrome, unstable angina, non-ST segment myocardial infarction after biopsy, severe triple-vessel disease, treated medically. SUBJECTIVE: The patient denies any chest pain, shortness of breath or any palpitation. PHYSICAL EXAMINATION: VITAL SIGNS: As follows, temperature afebrile, heart rate 84 and blood pressure 104/68. HEENT: PERRLA intact. NECK: Supple. No carotid bruits or thyromegaly. CHEST: Clear to auscultation. HEART: S1 and S2 regular. ABDOMEN: Soft. EXTREMITIES: Clubbing and cyanosis negative. LABORATORY DATA: Blood workup as follows: WBC 9.8, hemoglobin 11.3, hematocrit 34.2 and platelet count 177. Chemistry shows sodium 130, potassium 3.3, chloride 102, carbon dioxide 27, anion gap of 12, BUN of 23 and creatinine 1.1. IMPRESSION: Head and neck cancer, cancer of the lung, non-ST segment myocardial infarction, chest pain after biopsy, status post cardiac catheterization that revealed triple vessel disease, right coronary artery totally occluded, heavily calcified coronaries with a bridge collateral proximal to distal right coronary artery called the Kugel's sign, left mid distal 60% to 70% stenosis, mid left anterior descending 50% to 60% stenosis and circumflex 99% with bridge collaterals and very angulated takeoff, not suitable for percutaneous coronary intervention. Again, the left main 60% to 70% stenosis of right coronary artery, mid left anterior descending 60% to 70%, mild to moderately decreased ejection fraction 35% to 40%, posterior basal hypokinesis. RECOMMENDATIONS: We will get an echo to assess LV function and continue depending upon the findings of the echo. We will continue KUSH inhibitors, Coreg, diuretics, digoxin, spironolactone. Continue aspirin and Plavix for 4 weeks and baby aspirin alone. Discussed with the patient. Discussed with the patient's daughter. Discussed with the resident taking care of the team also. Started her on KUSH inhibitors and Coreg as well. So again, the combination would be KUSH inhibitors, lisinopril, Coreg, digoxin,diuretics, nitrate, spironolactone, aspirin and Plavix. Thank you for providing me the opportunity in taking care of the patient, Yovany Dang. Alyssa Warner MD
== END 2017-07-19 17:57 | disposition home or self-care (01) | DRG 281 ==
LOC: ED 13:17 → ERH 16:28 → 3RSO 19:43 → 2RSO 07-18 16:07
PROVIDERS: ADMIT Internal Medicine; ATTEND Internal Medicine
PROC: 4A023N7 Measurement of Cardiac Sampling and Pressure, Left Heart, Percutaneous Approach (ICD-10-PCS; principal; 2017-07-18)
PROC: B2111ZZ Fluoroscopy of Multiple Coronary Arteries using Low Osmolar Contrast (ICD-10-PCS; 2017-07-18)
PROC: B2151ZZ Fluoroscopy of Left Heart using Low Osmolar Contrast (ICD-10-PCS; 2017-07-18)
DX: I21.4 Non-ST elevation (NSTEMI) myocardial infarction (principal); C34.90 Malignant neoplasm of unspecified part of unspecified bronchus or lung; E11.51 Type 2 diabetes mellitus with diabetic peripheral angiopathy without gangrene; I25.82 Chronic total occlusion of coronary artery; I50.9 Heart failure, unspecified; I11.0 Hypertensive heart disease with heart failure; E83.42 Hypomagnesemia; I25.110 Atherosclerotic heart disease of native coronary artery with unstable angina pectoris; I25.5 Ischemic cardiomyopathy; Z92.21 Personal history of antineoplastic chemotherapy; Z92.3 Personal history of irradiation; Z98.42 Cataract extraction status, left eye; Z98.41 Cataract extraction status, right eye; Z96.1 Presence of intraocular lens; E78.5 Hyperlipidemia, unspecified; F17.210 Nicotine dependence, cigarettes, uncomplicated; I08.0 Rheumatic disorders of both mitral and aortic valves; I45.4 Nonspecific intraventricular block; Z79.02 Long term (current) use of antithrombotics/antiplatelets; Z79.82 Long term (current) use of aspirin; Z79.899 Other long term (current) drug therapy; Z85.21 Personal history of malignant neoplasm of larynx; Z85.819 Personal history of malignant neoplasm of unspecified site of lip, oral cavity, and pharynx